=== PATIENT | male | born 2000 | race African-American/Black ===

== ENCOUNTER 2022-08-12 22:58 | Emergency (ER) | payer OTHER ==
[2022-08-12] MEDS ORDERED: Hyoscyamine Sulfate SL 0.125 mg Tablet ONE ×2 (23:15→23:45)
[2022-08-12] MEDS ORDERED: Ondansetron PF 4 MG/2 ML Vial ONE (23:15)
[2022-08-12] MEDS ORDERED: Ondansetron ODT 4 MG TAB ONE ×2 (23:15→23:45)
== END 2022-08-12 23:59 | disposition home or self-care (01) ==
LOC: BURERS 22:58
DX: R11.2 Nausea with vomiting, unspecified (principal); R19.7 Diarrhea, unspecified
CPT/HCPCS: 99283; J2405; Q0162